=== PATIENT | male | born 1995 | race Caucasian/White ===

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

== ENCOUNTER 2017-05-29 21:58 | Emergency (ER) | payer BC ==
[~2017-05-29] VITALS: Ht 185.4 cm; Wt 102.3 kg
[~2017-05-29 21:58] MED LIST changes: +LEXAPRO 10MG10 MG PO; +PEPCID40 MG PO; +VYVANSE50 MG PO; +ZOFRAN 4MG T4 MG/TAB PO
[2017-05-29 22:03] VITALS: TEMP 98.4
[2017-05-29] MEDS ORDERED: ATARAX 25MG25 MG/TAB PO (23:41)
[2017-05-29 23:46] VITALS: BP 129/74; PULSE 77
== END 2017-05-29 23:46 | disposition home or self-care (01) ==
LOC: COL.ER 21:58
DX: F41.0 Panic disorder [episodic paroxysmal anxiety] (principal); J45.909 Unspecified asthma, uncomplicated; Z82.5 Family history of asthma and other chronic lower respiratory diseases